=== PATIENT | male | born 1985 | race Caucasian/White ===

== ENCOUNTER 2017-03-11 09:41 | Outpatient (CLI) | payer OTHER ==
--- NOTE | 2017-03-11 12:46 | MRI Report ---
EXAM: RIGHT KNEE MRI WITHOUT CONTRAST EXAM DATE: 03/11/2017 10:39 AM. CLINICAL HISTORY: RT KNEE PAIN W/ CATCHING. COMPARISON: None. TECHNIQUE: Multiplanar, multisequence T1-weighted and fluid-sensitive sequences of the knee without c ontrast. Other: None. FINDINGS: Bones: No fractures or subluxations. No marrow edema. No bone lesions. Articular Cartilage: Unremarkable. Medial Meniscus: A bucket-handle tear in the medial meniscus with inwardly displaced fragment. Lateral Meniscus: The lateral meniscus is intact. Cruciate Ligaments: The anterior and posterior cruciate ligaments are intact. Collateral Ligaments: Mild grade 1 sprain of the medial collateral ligament with mild edema underneat h. The posterior oblique and the lateral collateral ligaments are intact. Tendons: The quadriceps, patellar, semimembranosus, and popliteus tendons are unremarkable. Musculature: No edema or fatty atrophy. Other: Mild effusion without significant synovitis or hemarthrosis. A small popliteal cyst without ru pture. No loose bodies. The medial and lateral retinacula, patellofemoral ligaments and iliotibial b and are intact. No bursitis. The subcutaneous tissues and fat pads are unremarkable. IMPRESSION: 1. A bucket-handle tear in the medial meniscus with inwardly displaced fragment. 2. Mild grade 1 sprain of the medial collateral ligament. 3. Mild effusion without significant synovitis or hemarthrosis. 4. No other significant abnormality. [facility] MUSCULOSKELETAL RADIOLOGY SECTION Referring Provider Line: [phone] SITE ID: [id number]
== END 2017-03-11 09:42 | disposition home or self-care (01) ==
LOC: DI 09:41
PROVIDERS: ATTEND Anesthesiology Pain Medicine
DX: M25.561 Pain in right knee (principal); S83.211A Bucket-handle tear of medial meniscus, current injury, right knee, initial encounter; S83.411A Sprain of medial collateral ligament of right knee, initial encounter

== ENCOUNTER 2017-05-15 06:09 | Day surgery (SDC) | payer OTHER ==
[2017-05-15] MEDS ORDERED: ceFAZolin 2 GM/50 ML 2 GM/50 ML BAG IV ONE (06:35)
[2017-05-15] MEDS ORDERED: ACETAMINOPHEN 1,000 MG/100 ML 100 ML IV ONE (06:36)
[2017-05-15] MEDS ORDERED: LACTATED RINGERS 1,000 ML IV ONE (06:46)
[2017-05-15] MEDS ORDERED: MORPHINE PF 5 MG/10 ML AMP SUBQ ONE (07:31)
[2017-05-15] MEDS ORDERED: ROPIVACAINE 0.2% PF 20 ML AMPULE SUBQ ONE (07:31)
[2017-05-15] MEDS ORDERED: EPINEPHrine 1 MG/ML AMP IVP ONE (07:31)
[2017-05-15] MEDS ORDERED: BUPIVACAINE 0.25% PF 30 ML VIAL SUBQ ONE (08:40)
[2017-05-15] MEDS ORDERED: ONDANSETRON 4 MG/2 ML VIAL IVP ONE (09:05)
[2017-05-15] MEDS ORDERED: DEXAMETHASONE 4 MG/ML VIAL IVP ONE (09:05)
[2017-05-15] MEDS ORDERED: fentaNYL 100 MCG/2 ML VIAL IVP ONE (09:05)
[2017-05-15] MEDS ORDERED: LIDOCAINE-MPF 2% 5 ML VIAL IM ONE (09:05)
[2017-05-15] MEDS ORDERED: MIDAZOLAM 2 MG/2 ML VIAL IVP ONE (09:05)
[2017-05-15] MEDS ORDERED: KETOROLAC 30 MG/ML VIAL IVP ONE (09:05)
[2017-05-15] MEDS ORDERED: PROPOFOL 200 MG/20 ML VIAL IVP ONE (09:05)
[2017-05-15] MEDS: MEPERIDINE 50 MG/ML SYRINGE ONE ×2 (09:18→09:21)
[2017-05-15 11:01] VITALS: BP 128/74
--- NOTE | 2017-05-18 08:54 | OPERATIVE REPORT ---
DATE OF SURGERY: 05/15/2017 00:00:00 [facility] PREOPERATIVE DIAGNOSIS: Right knee medial meniscus tear. POSTOPERATIVE DIAGNOSIS: Right knee medial meniscus tear. OPERATION PERFORMED: Right knee arthroscopy with medial meniscus debridement. PRIMARY SURGEON: Argenis Farah MD HEADING AND PRIMING TOOL SETTER SURGEON: Jayson Beckham MD ANESTHESIA PROVIDER: Christiano Henderson CRNA ANESTHESIA: General via LMA. CIRCULATING NURSES 1. Marquita Brunson. 2. Daniella Licona RN HR RECEPTIONIST 1. Aide Moise CST 2. Hraitha Emerson RN, BSN IV FLUIDS: 800 mL lactated Ringer's. ESTIMATED BLOOD LOSS: Less than 5 mL. ANTIBIOTICS: Ancef 2 grams IV. TOURNIQUET: None. IMPLANTS: None. SPECIMENS: None. COMPLICATIONS: None. INDICATIONS: This is a 32-year-old male who has 2 to 3-year history of mild right knee pain after activity and then, in the spring, was bending his knees to set a box on the ground and had a sudden pop in his right knee and immediately had onset of pain and inability to straighten his knee. He has had activity modification, nonsteroidal antiinflammatories without any significant improvement. The risks, benefits, indications, expectations of treatment options were discussed with the patient to include risks of surgery including infection, bleeding, damage to neurovascular structures, need for additional surgery, persistent or worsened pain, recurrent meniscus tear, decreased range of motion or stiffness, iatrogenic chondromalacia, deep vein thrombosis, pulmonary embolism, loss of limb, and loss of life. All questions were answered. The patient elected to proceed with surgery, and informed consent was obtained. DESCRIPTION OF PROCEDURE: The patient was met in the preoperative hold area on the morning of surgery, where I confirmed I had the correct patient, planned to do the correct procedure, had the correct extremity which was the right lower extremity identified. Prior to the patient receiving any medications, the operative extremity was initialed by the surgeon. The patient was then brought back to the operating room in stable condition and placed supine on the operating room table. All bony prominences were well padded, and sequential compression device was placed on the nonoperative leg. General anesthesia was induced without complication, and an LMA was placed. An examination under anesthesia was performed, which showed the knee range of motion to be from 0 to 140 degrees. Knee was stable to varus and valgus at both 0 and 30 degrees. There was negative anterior and posterior drawer, and a 1A Alka's. The right lower extremity was then prepped and draped in the usual sterile fashion. After final draping additional ChloraPrep was utilized on the operative site. Three minutes were allowed to elapse to enable the ChloraPrep to dry. We held a surgical time-out. where we confirmed that we had the correct patient, planned to do the correct procedure, had the correct extremity which was the right lower extremity identified. We also confirmed that the patient received preoperative antibiotics, that all necessary gear was in the room and confirmed sterile, and that no members of the operative team had any concerns. We began making a standard anterolateral portal by first sharply incising with an 11 blade and then utilizing a blunt trocar to gain access into the knee. We placed the camera inside the trocar and began our examination of the patellofemoral joint, which was notable for very mild grooving of the trochlea consistent with grade 1 chondromalacia. The remainder of the patellofemoral joint was unremarkable. There were no loose bodies in the lateral gutter. We then continued our exam to the medial compartment, where immediately upon entering the medial compartment a medial meniscus tear was visualized. We then made a standard anteromedial portal by first localizing with an 18-gauge needle , then incising the skin with an 11 blade and introducing a blunt trocar to widen the portal. We then introduced a probe and continued our examination. The medial meniscus had a bucket handle tear with a horizontal tear component as well, making it unrepairable. Decision was made to perform a partial medial meniscectomy. A biter was introduced and bucket handle aspect of the tear was cut into 2 pieces, and then a sucker shaver was introduced and the meniscus was debrided. We continued debridement of the horizontal aspect utilizing a biter to remove the lower leaf of the meniscus, and then further debrided with a sucker shaver following that. The medial tibial plateau was notable for grade 1 chondromalacia. The medial femoral condyle was without significant lesion. We then continued our exam into the notch, which showed an intact ACL and PCL. We then continued our examination into the lateral compartment, which showed an intact lateral meniscus, and no significant cartilage lesion of the lateral femoral condyle. There was mild softening of the lateral tibial plateau consistent with grade 1 chondromalacia. All instruments were removed from the knee. The wounds were closed with 3-0 Monocryl in a buried fashion. Mastisol and Steri-Strips were then placed over the incisions. Marcaine 2.5 mL, 0.5%, without epinephrine was injected about the portal sites for postoperative analgesia. Additionally, 10 mg of 0.2% ropivacaine was injected intraarticularly for postoperative analgesia. The wounds were then dressed with sterile Xeroform and gauze. An ABD was placed over this. A ORI hose was then placed over the dressings. The patient was awakened from general anesthesia without complication and taken to the PACU in stable condition. All sponge counts and needle counts were correct at the conclusion of case. POSTOPERATIVE PLAN: The patient will be weightbearing as tolerated on his right lower extremity. He may have range of motion as tolerated. I will see the patient back in 10-14 days for a wound check, at which time we will initiate physical therapy. Report edited and signed 05/18/2017 by Argenis Farah MD. JOB #: [id number] EXT JOB #:[id number] MTDD
== END 2017-05-15 06:10 | disposition home or self-care (01) ==
LOC: SDS 06:09
PROVIDERS: ATTEND Orthopaedic Surgery
PROC: 0SBC4ZZ Excision of Right Knee Joint, Percutaneous Endoscopic Approach (ICD-10-PCS; principal; 2017-05-15 07:30)
DX: S83.211A Bucket-handle tear of medial meniscus, current injury, right knee, initial encounter (principal)
CPT/HCPCS: 29881; J0131; J0690; J7120

== ENCOUNTER 2017-12-14 10:23 | Emergency (ER) | payer OTHER ==
[2017-12-14] MEDS ORDERED: ACETAMINOPHEN 325 MG TABLET PO STA (10:44)
[2017-12-14] MEDS ORDERED: IBUPROFEN 400 MG TABLET PO STA (10:44)
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
[2017-12-14 12:12] VITALS: BP 139/91
== END 2017-12-14 12:11 | disposition home or self-care (01) ==
LOC: ED 10:23
DX: S43.111A Subluxation of right acromioclavicular joint, initial encounter (principal); V18.4XXA Pedal cycle driver injured in noncollision transport accident in traffic accident, initial encounter; Y93.55 Activity, bike riding
CPT/HCPCS: 73030; 99283; A9270